=== PATIENT | male | born 1980 ===

== ENCOUNTER 2020-09-09 09:22 | Outpatient (CLI) | payer OTHER | END 2020-09-09 23:59 | disposition home or self-care (01) | LOC: RAD 09:22 | PROVIDERS: ATTEND Family Medicine Adult Medicine | DX: S83.232A Complex tear of medial meniscus, current injury, left knee, initial encounter (principal); X58.XXXA Exposure to other specified factors, initial encounter; Y93.89 Activity, other specified; Y92.89 Other specified places as the place of occurrence of the external cause; Y99.8 Other external cause status ==